=== PATIENT | female | born 1990 | race Caucasian/White ===

== ENCOUNTER 2016-07-17 11:23 | Emergency (ER) | payer OTHER ==
[~2016-07-17 11:23] MED LIST: ADVAIR 10028 BLISTER INH; ADVAIR 25028 BLISTE1 INH; ALBUTEROL SULF8.5 GM IH; ALLERGY SHOTS; AVIANE1 TAB; BACTRIM DS TAB1 EAC2 PO; DYMISTA NASAL S23 G1 NS; FLONASE16 G1; FLONASE16 GM; MUCINEX FAST-M177 ML PO; PREDNISONE10 MG PO; PREDNISONE20 M1 PO; PRENATAL1 EACH PO; PRILOSEC OTC20 MG PO; PROTONIX40 M2 PO; SINGULAIR10 MG; SYMBICORT 160-4.6 GM INH; XANAX0.25 MG PO; ZOFRAN ODT4 MG/UDTAB PO; ZYRTEC10 M; ZYRTEC10 M3 PO
[2016-07-17] MEDS ORDERED: CRYSELLE-28 TA1 EACH PO (11:46)
[2016-07-17 12:20] LABS: BASO % 0.2 % (0-2); EOS % 0.5 % (0-7); EOSINOPHIL ABSOLUTE COUNT 0.1 tho/cmm (0.0-0.7); HCT-HEMATOCRIT 42.9 % (34.0-49.0); HGB-HEMOGLOBIN 13.7 gm/dl (12.0-15.5); IMMATURE GRANULOCYTES ABSOLUTE 0.33 tho/cmm (0-0.03); IMMATURE GRANULOCYTES PERCENT 2.5 % (0-0.3); LYMPH % 28.4 % (20-45); LYMPH ABSOLUTE COUNT 3.8 tho/cmm (0.8-4.5); MCH (MEAN CORPUSCULAR HGB) 28.2 pg (28.0-32.0); MCHC MEAN CORPUSCULAR HGB CONC 31.9 % (32.0-36.0); MCV (MEAN CELL VOLUME) 88.3 fl (82.0-96.0); MEAN PLATELET VOLUME 9.6 cmc (9.4-12.4); MONO % 12.2 % (0-12); MONOCYTE ABSOLUTE COUNT 1.6 tho/cmm (0.0-1.2); NEUTROPHIL ABSOLUTE COUNT 7.5 tho/cmm (1.6-8.0); NEUTROPHIL-AUTOMATED 7.5 tho/cmm (1.6-8.0); NEUTROPHILS % 56.2 % (40-80); PLATELET COUNT 400 tho/cmm (150-450); RED BLOOD COUNT 4.86 mil/cmm (4.00-5.20); RED CELL DISTRIBUTION WIDTH 14.2 % (12.4-16.4); WHITE BLOOD COUNT 13.3 tho/cmm (4.0-10.0)
[2016-07-17 12:36] LABS: ANION GAP 9 mmol/L (0-20); BLOOD UREA NITROGEN 9 mg/dl (6-24); CALCIUM 8.8 mg/dl (8.5-10.5); CARBON DIOXIDE-VENOUS 30 mmol/L (22-32); CHLORIDE 105 mmol/l (96-110); CREATININE 0.89 mg/dl (0.50-1.10); GLUCOSE 92 mg/dL (70-110); POTASSIUM 3.4 mmol/L (3.7-5.1); SODIUM 141 mmol/L (135-145); eGFR VALUE FOR BLACK >90 mL/Min
[2016-07-17 12:39] LABS: PREGNANCY-SERUM NEGATIVE (NEGATIVE)
== END 2016-07-17 13:40 ==
LOC: EDMED 11:23
PROVIDERS: Emergency Medicine
DX: R55 Syncope and collapse (principal); H65.91 Unspecified nonsuppurative otitis media, right ear